=== PATIENT | female | born 1985 | race Caucasian/White ===

== ENCOUNTER 2019-12-20 11:26 | Emergency (ER) | payer MEDICAID ==
[2019-12-20] MEDS ORDERED: Hydrocortisone/Neomycin/Polymyxin B Otic Susp 10 ML Bottle ONE (12:00)
--- NOTE | 2019-12-20 17:58 | ER ---
REASON FOR EMERGENCY ROOM VISIT: Bleeding from left external ear. HISTORY: This 34-year-old woman has had a past history of multiple ear infections. Last one requiring treatment in September of this year. She does not have a history of chronic ear drainage and has also been treated for otitis externa in the past 2 years ago, which was thought at the time to frequent cleaning of the external canal. She awoke this morning with a sensation of some drainage from her left ear and examined with her finger tip and found some blood coming from the external auditory meatus, this has oozed slightly ever since then. She does have some mild discomfort in her left ear, but is certainly not very severe. She has no history of trauma, instrumentation, swimming, barotrauma, or exposure to loud noises. Her hearing has not been affected by this. PAST MEDICAL HISTORY: Otherwise unremarkable. She has had the usual childhood illnesses includin. Strep throat. 2. Tonsillitis. MEDICATIONS: None. ALLERGIES: NONE. SOCIAL HISTORY: She lives [place] outside of [facility]. FAMILY HISTORY: Her grandmother had leukemia at an old age. Her aunt from colon cancer. Her father and mother are both healthy except her mother has hypertension. She has 4 siblings, who are alive and well. REVIEW OF SYSTEMS: Pertinent positives and negatives as listed in the HPI. She has not had any fever or chills. She denies any headache. PHYSICAL EXAMINATION: GENERAL: Reveals a pleasant woman, in no acute distress. VITAL SIGNS: She is afebrile. HEENT: Head is normocephalic. There is no tenderness about the mastoid process area. Manipulation of the external ear, there is minimal discomfort on the left side. Otoscopic examination on the right, there is some small amount of cerumen, but the tympanic membrane looks normal. On the left side, her tympanic membrane is normal, but she does have what appears to be almost a rim of granulation tissue with some minimal exudate on its surface around the external canal just beyond the tympanic membrane. There is a tiny bit of oozing from the surface of this as this appears to be somewhat raw. Oropharynx is normal. NECK: Normal and supple. No adenopathy is noted. CHEST: Clear to auscultation. CARDIAC: Regular rate without murmur. IMPRESSION: Otitis externa, moderate. PLAN: She was given a prescription of polymyxin B and Neosporin otic solution to apply 4 drops to the affected ear q.i.d. I instructed her as to how this should be done. Most importantly, however, as I think she needs to be followed up, she may need to be referred to an ENT should this not resolve and a biopsy be deemed necessary to rule out any other unusual things such as tumor or even malignancy. This may be result of chronic otitis media as well, which can give this appearance. She understands and agrees with this plan. All questions were answered. MONTEZ /[id number]
== END 2019-12-20 12:20 | disposition home or self-care (01) ==
LOC: LB.ED 11:26
DX: H60.92 Unspecified otitis externa, left ear (principal); H61.21 Impacted cerumen, right ear
CPT/HCPCS: 99282; 99283; A9270

== ENCOUNTER 2020-08-19 18:37 | Emergency (ER) | payer MEDICAID ==
[2020-08-19] MEDS ORDERED: Ketorolac 60 MG/2 ML SDV IM ONE (19:45)
--- NOTE | 2020-08-19 19:51 | EDM.PDOC ---
ED HPI GENERAL MEDICAL PROBLEM - General Chief Complaint: General Stated Complaint: lump on arm Time Seen by Provider: 08/19/20 19:30 Source of Information: Reports: Patient History Limitations: Reports: No Limitations - History of Present Illness INITIAL COMMENTS - FREE TEXT/NARRATIVE: pt here due to pain of the forearm. located on the dorsal aspect. started 3-4 days ago. worse with movement. better at rest. no h/o injury or trauma. no swelling or tingling. no skin changes. 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 no numbness or tingling. no restricted hand movement. first time. no h/o cat or dog scratch. no open wound didn't take anything for pain - no Tylenol or NSAIDs before coming to the ER. Right Finger-Thumb Pain Score (Numeric/FACES): 7 - Related Data Allergies Allergy/AdvReac Type Severity Reaction Status Date / Time No Known Allergies Allergy Verified 01/04/18 09:06 Home Meds: Home Meds Neomycin/Polymyxin B/Hydrocort [Pyobkxfb-Ukjn-OH Eye Drops] 7.5 ml OP QID #1 drops.susp 12/20/19 [Rx] Past Medical History HEENT History: Reports: Otitis Media Respiratory History: Reports: None Gastrointestinal History: Reports: None Social & Family History - Family History Family Medical History: No Pertinent Family History - Tobacco Use Tobacco Use Status *Q: Current Every Day Tobacco User Years of Tobacco use: 20 Packs/Tins Daily: 1 - Caffeine Use Caffeine Use: Reports: Soda - Alcohol Use Days Per Week of Alcohol Use: 2 Number of Drinks Per Day: 8 Total Drinks Per Week: 16 - Recreational Drug Use Recreational Drug Use: No ED ROS GENERAL - Review of Systems Review Of Systems: See Below Constitutional: Reports: No Symptoms HEENT: Reports: No Symptoms Respiratory: Reports: No Symptoms Cardiovascular: Reports: No Symptoms GI/Abdominal: Reports: No Symptoms Skin: Reports: No Symptoms Neurological: Reports: No Symptoms ED EXAM, GENERAL - Physical Exam Exam: See Below Exam Limited By: No Limitations General Appearance: Alert, WD/WN, No Apparent Distress Eye Exam: Bilateral Eye: EOMI Neck: Normal Inspection Respiratory/Chest: No Respiratory Distress Cardiovascular: Normal Peripheral Pulses GI/Abdominal: Normal Bowel Sounds Extremities: Normal Inspection, Normal Range of Motion, No Pedal Edema, Normal Capillary Refill, Other (mild superficial TTP over th dorsal aspect. no palpable mass or lesion. no sking changes or e/o infection ). No: Limited Range of Motion Neurological: Alert, Oriented, No Motor/Sensory Deficits Psychiatric: Normal Affect, Normal Mood Course - Vital Signs Last Recorded V/S: Last Vital Signs Temp 36.7 C 08/19/20 18:50 Pulse 84 08/19/20 19:22 Resp 18 08/19/20 18:50 BP 125/91 H 08/19/20 19:22 Pulse Ox 100 08/19/20 18:50 - Orders/Labs/Meds Meds: Medications Discontinued Medications Generic Name Dose Route Start Last Admin Trade Name Freq PRN Reason Stop Dose Admin Ketorolac Tromethamine Confirm 08/19/20 19:55 08/19/20 19:59 Ketorolac 60 Mg/2 Ml Sdv Administered 08/19/20 19:56 Not Given Dose 60 mg .ROUTE .STK-MED ONE Ketorolac Tromethamine 60 mg 08/19/20 19:45 08/19/20 19:47 Ketorolac 60 Mg/2 Ml Sdv IM 08/19/20 19:46 60 mg ONETIME ONE Administration - Re-Assessments/Exams Free Text/Narrative Re-Assessment/Exam: 08/19/20 19:50 no e/o trauma or infection. probably related to muscle - will administer Toradol IM 08/19/20 20:12 pain completely resolved after the medication Departure - Departure Time of Disposition: 20:12 Disposition: Home, Self-Care 01 Condition: Good Clinical Impression: Right forearm pain - Discharge Information *PRESCRIPTION DRUG MONITORING PROGRAM REVIEWED*: Not Applicable *COPY OF PRESCRIPTION DRUG MONITORING REPORT IN PATIENT STEPHEN: Not Applicable Referrals: PCP,None [Primary Care Provider] - Forms: ED Department Discharge Sepsis Event Note (ED) - Evaluation Sepsis Screening Result: No Definite Risk - Focused Exam Vital Signs: Vital Signs Temp Pulse Resp BP Pulse Ox 08/19/20 19:22 84 125/91 H 08/19/20 19:00 84 143/104 H 08/19/20 18:50 36.7 C 86 18 149/113 H 100 - Problem List & Annotations (1) Right forearm pain SNOMED Code(s): 013660790 Code(s): M79.631 - PAIN IN RIGHT FOREARM Status: Acute Priority: Low Current Visit: Yes - Problem List Review Problem List Initiated/Reviewed/Updated: Yes - Assessment/Plan Plan: - take Tylenol and ibuprofen as needed for pain - ice the affected area as needed - follow up with your PCP in 1-2 weeks if pain persisted
[2020-08-19] MEDS ORDERED: Ketorolac 60 MG/2 ML SDV ONE (19:55)
== END 2020-08-19 20:15 | disposition home or self-care (01) ==
LOC: LB.ED 18:37
DX: M79.631 Pain in right forearm (principal); Z72.0 Tobacco use
CPT/HCPCS: 96372; 99283; J1885

== ENCOUNTER 2023-07-09 10:12 | Emergency (ER) | payer MEDICAID ==
[2023-07-09 11:12] LABS: HEMATOCRIT 40.1 % (37.0-47.0); HEMOGLOBIN 13.7 g/dL (11.5-16.5); MEAN CORPUSCULAR HEMOGLOBIN 33.5 pg (27.0-32.0); MEAN CORPUSCULAR HGB CONC 34.2 g/dL (31.0-35.0); MEAN PLATELET VOLUME 9.1 fL (6.0-10.0); RED BLOOD CELL COUNT 4.09 M/uL (3.80-5.80); RED CELL DISTRIBUTION WIDTH 14.2 % (11.0-16.0); WHITE BLOOD CELL COUNT,WBC 5.4 K/uL (4.0-11.0)
[2023-07-09 11:19] LABS: A/G RATIO 1.1 (0.8-2.0); ALBUMIN 3.8 g/dL (3.4-5.0); ANION GAP 12.3 mmol/L (5.0-15.0); BILIRUBIN TOTAL 0.6 mg/dL (0.0-1.0); BUN/CREATININE RATIO 12.1 (6-25); CALCIUM 8.5 mg/dL (8.5-10.1); CARBON DIOXIDE,CO2 27.5 mmol/L (21.0-32.0); CREATININE 0.66 mg/dL (0.55-1.02); EST CRCL DRUG DOSING (CG) 117.73 mL/min; POTASSIUM,K 3.8 mmol/L (3.5-5.1); PROTEIN TOTAL,TP 7.2 g/dL (6.4-8.2)
[2023-07-09 11:33] LABS: APPEARANCE,URINE CLEAR (CLEAR); BILIRUBIN,URINE NEGATIVE (NEGATIVE); COLOR,URINE YELLOW; GLUCOSE,URINE NEGATIVE (NEGATIVE); KETONES,URINE NEGATIVE (NEGATIVE); LEUKOCYTE ESTERASE,URINE MODERATE (NEGATIVE); NITRITE,URINE NEGATIVE (NEGATIVE); OCCULT BLOOD,URINE NEGATIVE (NEGATIVE); PROTEIN,URINE NEGATIVE (NEGATIVE); UROBILINOGEN,URINE 0.2 E.U./dL (0.2-1.0)
[2023-07-09 11:44] LABS: EPITHELIAL CELLS,URINE MODERATE /HPF; RBC,URINE NOT SEEN /HPF; WBC,URINE 20-30 /HPF
[2023-07-09] MEDS: Iopamidol 612 MG/ML 100 ML Bottle IV PRN (12:24)
[2023-07-09] MEDS: Sodium Chloride 0.9% 50 ML SDV FLUSH SCH (12:24)
== END 2023-07-09 12:55 | disposition home or self-care (01) ==
LOC: LB.ED 10:12
DX: K92.1 Melena (principal); N39.0 Urinary tract infection, site not specified; I10 Essential (primary) hypertension; E66.9 Obesity, unspecified; Z79.899 Other long term (current) drug therapy; Z86.19 Personal history of other infectious and parasitic diseases; Z87.891 Personal history of nicotine dependence; Z68.31 Body mass index [BMI] 31.0-31.9, adult
CPT/HCPCS: 36415; 74177; 80053; 81001; 81003; 85027; 87086; 99283; 99285; J3490; Q9967

== ENCOUNTER 2023-08-01 08:06 | Day surgery (SDC) | payer MEDICAID ==
[~2023-08-01 08:06] MED LIST: Metoclopramide 10 MG/2 ML SDV IV PRN
[2023-08-01] MEDS: Sodium Chloride 0.9% 1,000 ML IV SCH (09:01)
[2023-08-01] MEDS ORDERED: Propofol 1,000 MG/100 ML SDV ONE (09:55)
== END 2023-08-01 10:50 | disposition home or self-care (01) ==
LOC: LB.SDS 08:06
PROVIDERS: ATTEND Surgery
DX: K62.5 Hemorrhage of anus and rectum (principal); I10 Essential (primary) hypertension; Z80.0 Family history of malignant neoplasm of digestive organs
CPT/HCPCS: J2704; J7030